=== PATIENT | male | born 1995 | race African-American/Black ===

== ENCOUNTER 2018-03-23 14:27 | Emergency (ER) | payer SELFPAY ==
[~2018-03-23] VITALS: Ht 165.1 cm; Wt 114.8 kg
--- NOTE | 2018-03-23 16:01 | PHYS DOC ---
Past Medical History Past Medical History: No Pertinent History Past Surgical History: No Surgical History Alcohol Use: None Drug Use: None Adult General Chief Complaint Chief Complaint: HEADACHE HPI HPI Patient is a 22 year old AA male who presents to the ER with complaints of R eye redness and tearing with pressure behind his R eye for the last week. He denies any dizziness, floaters, crusting of eye lid, nausea, vomiting, neck pain , or known injury. PT states the tearing makes his vision blurry at times and that his R eye is sensitive to light. He denies using any contacts, states he is supposed to wear glasses but he does not wear them. He reports a history of migraines, but states that this pain is different than his usual headache. Review of Systems Review of Systems Constitutional: Denies fever or chills [] Eyes: Denies change in visual acuity, redness, or eye pain [] HENT: Denies nasal congestion or sore throat [] Respiratory: Denies cough or shortness of breath [] Cardiovascular: No additional information not addressed in HPI [] GI: Denies abdominal pain, nausea, vomiting, bloody stools or diarrhea [] : Denies dysuria or hematuria [] Musculoskeletal: Denies back pain or joint pain [] Integument: Denies rash or skin lesions [] Neurologic: Denies headache, focal weakness or sensory changes [] Endocrine: Denies polyuria or polydipsia [] All other systems were reviewed and found to be within normal limits, except as documented in this note. Current Medications Current Medications Current Medications Medications (Trade) Dose Ordered Sig/Irma Start Time Stop Time Status Last Admin Dose Admin Erythromycin (Romycin) 0.25 inch 1X ONCE 03/23/18 18:00 03/23/18 18:01 03/23/18 17:45 0.25 INCH Ketorolac Tromethamine (Toradol 30mg Vial) 30 mg 1X ONCE 03/23/18 18:00 03/23/18 18:01 03/23/18 17:45 30 MG Phenytoin Sodium (Dilantin) 400 mg 1X ONCE 03/23/18 17:15 03/23/18 17:16 Cancel Allergies Allergies Allergies Coded Allergies Type Severity Reaction Last Updated Verified No Known Drug Allergies 03/23/18 No Physical Exam Physical Exam Constitutional: Well developed, well nourished, no acute distress, non-toxic appearance. [] HENT: Normocephalic, atraumatic, bilateral external ears normal, oropharynx moist, no oral exudates, nose normal. [] Eyes: PERRLA, EOMI, conjunctiva normal left eye, conjunctiva injected laterally right eye, no discharge L eye, watery discharge R eye. Mild swelling noted of R upper and lower eyelids without erythema Neck: Normal range of motion, no tenderness, supple, no stridor. [] Skin: Warm, dry, no erythema, no rash. [] Neurologic: Alert and oriented X 3, normal motor function, normal sensory function, no focal deficits noted. [] Psychologic: Affect normal, judgement normal, mood normal. [] Current Patient Data Vital Signs Vital Signs Date Time Temp Pulse Resp B/P (MAP) Pulse Ox O2 Delivery O2 Flow Rate FiO2 03/23/18 15:46 98.6 87 18 150/64 (92) 97 Room Air 98.6 EKG EKG [] Radiology/Procedures Radiology/Procedures PROCEDURE: CT HEAD WO CONTRAST Examination: CT HEAD WO CONTRAST, CT ORBITS WO CONTRAST History: RT EYE PAIN AND HEADACHES X 2 WEEKS, PRIOR CT HEAD SENT Comparison/Correlation: 06/12/2006 CT head without contrast Findings: Axial images of the head and orbits were obtained without contrast. Sagittal and coronal reformatted images of the orbits were provided. Ventricles are normal size. No intracranial hemorrhage, midline shift, or mass effect. Globes and optic nerves are unremarkable. The extraocular muscles are normal. Minimal mucosal thickening involving the left frontal sinus is present. Patchy opacification of ethmoid air cells is noted. Opacification of much of the right maxillary sinus is noted. Minimal opacification of the left maxillary sinus is present and this is primarily at the ostium with. Mucosal thickening of the left maxillary sinus noted. Bony structures are unremarkable. Impression: No intracranial hemorrhage. Chronic paranasal sinusitis. Globes and optic nerves are unremarkable. [] Course & Med Decision Making Course & Med Decision Making Pertinent Labs and Imaging studies reviewed. (See chart for details) Dx: conjunctivitis of R eye, headache Pt was given 30 mg IM toradol and first dose of erythromycin eye ointment was administered. RX for emycin eye ointment was written. PT was instructed to follow up with atmospheric physicist this week if symptoms persist. Return to ER if symptoms worsen. Patient verbalized an understanding of home care, medications, follow-up, and return to ED instructions and was in agreement with the plan of care. [] Dragon Disclaimer Dragon Disclaimer This electronic medical record was generated, in whole or in part, using a voice recognition dictation system. Departure Departure Impression: Primary Impression: Headache Additional Impression: Conjunctivitis, right eye Disposition: HOME, SELF-CARE Condition: STABLE Referrals: NO PCP (PCP) Patient Instructions: Conjunctivitis (Viral and Bacterial), General Headache Without Cause, [id number] Additional Instructions: Home to rest. Fill prescription and use as directed. Follow up with atmospheric physicist this week if symptoms persist. Return to ER if symptoms worsen. Scripts Erythromycin Base (Erythromycin) 1 Gm Oint...g. 1 GM OP QID for 5 Days, #1 TUBE 0 Refills Prov: COOPER [employer]ERT [employer] 03/23/18 Problem Qualifiers Primary Impression: Headache Headache type: unspecified Headache chronicity pattern: episodic headache Intractability: not intractable Qualified Codes: R51 - Headache Additional Impression: Conjunctivitis, right eye Conjunctivitis type: acute Acute conjunctivitis type: unspecified Qualified Codes: H10.31 - Unspecified acute conjunctivitis, right eye [employer] Mar 23, 2018 16:01
[2018-03-23 16:53] VITALS: BP 135/78
[2018-03-23] MEDS ORDERED: PHENYTOIN SODIUM EXTENDED 100 MG CAPSULE PO ONE (17:15)
--- NOTE | 2018-03-23 17:23 | RAD ---
Examination: CT HEAD WO CONTRAST, CT ORBITS WO CONTRAST History: RT EYE PAIN AND HEADACHES X 2 WEEKS, PRIOR CT HEAD SENT Comparison/Correlation: 06/12/2006 CT head without contrast Findings: Axial images of the head and orbits were obtained without contrast. Sagittal and coronal reformatted images of the orbits were provided. Ventricles are normal size. No intracranial hemorrhage, midline shift, or mass effect. Globes and optic nerves are unremarkable. The extraocular muscles are normal. Minimal mucosal thickening involving the left frontal sinus is present. Patchy opacification of ethmoid air cells is noted. Opacification of much of the right maxillary sinus is noted. Minimal opacification of the left maxillary sinus is present and this is primarily at the ostium with. Mucosal thickening of the left maxillary sinus noted. Bony structures are unremarkable. Impression: No intracranial hemorrhage. Chronic paranasal sinusitis. Globes and optic nerves are unremarkable. Electronically signed by: Nav Barcenas MD (03/23/2018 5:19 PM) [facility]
[2018-03-23] MEDS ORDERED: ERYT1OIN6 OP (17:58)
[2018-03-23] MEDS ORDERED: KETOROLAC 30 MG/ML VIAL. IM ONE (18:00)
[2018-03-23] MEDS ORDERED: ERYTHROMYCIN 0.5% OPHTH OINTMENT 1GM TUBE. OD ONE (18:00)
== END 2018-03-23 18:04 | disposition home or self-care (01) ==
LOC: ER 14:27
DX: H10.31 Unspecified acute conjunctivitis, right eye (principal); R51 Headache
CPT/HCPCS: 70450; 70480; 96372; 99284; J1885